=== PATIENT | male | born 1950 | race Caucasian/White ===

== ENCOUNTER 2019-01-26 01:18 | Inpatient (IN) ==
[2019-01-26] MEDS ORDERED: AMIODARONE / D5W 360 MG/200 ML BAG IV STA (04:03)
[2019-01-26] MEDS ORDERED: ICU PROTOCOL FOR HYPERGLYCEMIA PRN (04:03)
[2019-01-26] MEDS ORDERED: ALBUT/IPRATROP 3MG/0.5MG NEB 3 ML VIAL NEB SCH (04:15)
[2019-01-26] MEDS ORDERED: NORMOSOL-R 1,000 ML IV SCH (04:15)
--- NOTE | 2019-01-26 04:28 | Critical Care Consultation ---
Date of Consultation January 26, 2019 Assessment & Plan (1) Ventricular tachycardia: Reason Critically Ill: 68-year-old male presents as transfer from [facility] following ventricular tachycardia requiring cardioversion. Neuro - [facility] ICU: Negative History of brain bleedstatus post craniotomy, only neurological deficit is tremors in hands Cardiac - V. tachpatient received adenosine and then amiodarone at [facility] without conversion, successful synchronized cardioversion at [facility] with 200 J -Patient experienced pauses and transferred from [facility] with associated dizziness, possible pacer malfunction -Status post ablation from July 2018 following ventricular dysrhythmias, patient has AICD malfunction as well -Cardiology consulted, will follow up recs, patient will likely need pacer interrogation -We will maximize electrolytes to keep K greater than 4, mag greater than 2 -No ST elevation on EKG, will trend troponins -will continue amiodarone drip A. fibcontinue Eliquis, beta-lyle CADunderwent CABG in 2000, underwent stent placement 2017 -Currently on daily ASA HTNwe will hold lisinopril for ADY, will resume other home meds Respiratory - COPDcurrently maintaining oxygen saturations on room air, wears 3 L nasal cannula at night while sleeping -Patient is status post left lower lobe lobectomy from July 2018 following diagnosis of small cell carcinoma -Patient had mild wheeze with auscultation on exam -Follow-up CXR -Start nebs -Continuous monitor oxygen saturation GI - N.p.o. at this time RENAL/LYTES - ADY versus CKDno baseline creatinine, no history kidney disease -Hold lisinopril, avoid nephrotoxins -Normosol at 100 mL/h -Monitor creatinine with routine BMPs - Strict I's and O's ENDO - No history diabetes, ICU hyperglycemic protocol Hypothyroidismcontinue Synthroid HEME - H&H stable, monitor routine CBCs ID - No indication for infectious process at this time LINES/IV ACCESS - Peripheral IVs DVT PROPHYLAXIS - SCDs, patient on Eliquis Thank you for allowing us to participate in the care of this patient. Please refer to my attending physician's documentation for any further recommendations. (2) Hypothyroid: (3) Acute kidney injury: (4) Hypertension: (5) COPD (chronic obstructive pulmonary disease): (6) S/P lobectomy of lung: (7) Paced cardiac rhythm: (8) CAD (coronary artery disease): Supervising Physician Co-Signing Physician Notes Patient seen and examined. EMR reviewed. EKGs were reviewed. Discussed with critical care ROSALIO. Patient is a 5-year-old male with an extensive cardiac history who is visiting from [place] for a . His mhdfyl-sy-[id number] recently . He experienced some palpitations and shortness of breath and was seen in the emergency room at [facility]. He had a wide-complex tachycardia. He was treated with adenosine then loaded on amiodarone. He was cardioverted successfully and transported to our facility for higher level of care. Overnight he has been maintained on amiodarone. He reports that he has a dual- chamber pacemaker/AICD in place but cannot recall having had issues with his implantable defibrillator previously. Recommendations: 1. Sustained ventricular tachycardia: Await interrogation of pacemaker AICD. Continue amiodarone for now. He has been maintained in a narrow complex which is paced. Unclear if his pacemaker needs to be readjusted or the settings on his AICD need to be reevaluated. We are pending arrival of the pacemaker human resources representative later today for interrogation. Would continue amiodarone for now. His magnesium was slightly low and will be repleted. Potassium also at lower limits of normal and will be repleted. 2. Palpitations and shortness of breath: Secondary to ventricular arrhythmia. Resolved currently. Continue to follow. 3. Coronary disease: Continue outpatient medications. 4. The patient appears to be stable currently and is appropriate for management on the telemetry floor. Will sign off when he leaves the ICU. Feel free to contact us if we can be of additional assistance History of Present Illness Attending Physician: Aashish Curtis MD History of Present Illness Mr. Rucker is a 68-year-old male with an extensive past medical history significant for CAD as/P CABG (2001), cardiac stent (2017), brain bleed S/P craniotomy, pacemaker, small cell lung cancer S/P left lower lobectomy (08/17), ventricular dysrhythmia S/P ablation (08/17), COPD, HTN, A. fib, hypothyroidism. He was in [place] for a and presented to [facility] with complaints of chest discomfort and shortness of breath. Patient was found to be in sustained monomorphic V. tach. He received adenosine without result, then amiodarone but remained in ventricular tachycardia. He was then cardioverted and converted to paced rhythm. Patient was then transferred to [facility]. On arrival to the ICU the patient is calm and cooperative. He reports intermittent dizziness and EMS reports that the patient has had pauses on the monitor where his pacemaker is not capturing with associated dizzy spells. He currently denies headache, chest pain, palpitations, shortness of breath, abdominal pain, nausea or vomiting, diarrhea. Patient is currently hemodyna mically stable. Cardiology has been consulted in regards to pacemaker malfunction which is [employer]. Patient is currently on amiodarone drip. Will remain in ICU for close monitoring for now Allergies Allergy/AdvReac Type Severity Reaction Status Date / Time morphine AdvReac Headache Verified 01/26/19 04:14 Home Medications Home Medications Medication Instructions Recorded Confirmed Type aclidinium bromide [Tudorza 1 inh INHALATION DAILY 01/26/19 01/26/19 History Pressair] albuterol sulfate 2 puff INHALATION Q4 PRN 01/26/19 01/26/19 History albuterol sulfate 2.5 mg INHALATION Q8H PRN 01/26/19 01/26/19 History alprazolam [Xanax] 0.5 mg PO HS PRN 01/26/19 01/26/19 History apixaban [Eliquis] 5 mg PO BID 01/26/19 01/26/19 History aspirin [Aspir-81] 81 mg PO DAILY 01/26/19 01/26/19 History atorvastatin [Lipitor] 80 mg PO DAILY 01/26/19 01/26/19 History bupropion HCl 300 mg PO DAILY 01/26/19 01/26/19 History carvedilol [Coreg] 25 mg PO BID 01/26/19 01/26/19 History citalopram [Celexa] 20 mg PO DAILY 01/26/19 01/26/19 History clopidogrel [Plavix] 75 mg PO DAILY 01/26/19 01/26/19 History fenofibrate nanocrystallized 145 mg PO DAILY 01/26/19 01/26/19 History fluticasone propion-salmeterol 1 puff INHALATION BID 01/26/19 01/26/19 History [Advair Diskus] lactobacillus combination no.4 3,000 mmu cells PO DAILY 01/26/19 01/26/19 History [Probiotic] levothyroxine [Synthroid] 100 mcg PO DAILY 01/26/19 01/26/19 History lisinopril [Zestril] 40 mg PO DAILY 01/26/19 01/26/19 History omega-3 acid ethyl esters 1 g PO BID 01/26/19 01/26/19 History roflumilast [Daliresp] 500 mcg PO DAILY 01/26/19 01/26/19 History zolpidem [Ambien] 10 mg PO HS PRN 01/26/19 01/26/19 History Patient History Medical History Atrial fibrillation Brain bleed CAD (coronary artery disease) COPD (chronic obstructive pulmonary disease) Hypertension Hypothyroid Lung malignancy Paced cardiac rhythm Ventricular tachycardia Surgical History H/O hernia repair History of craniotomy S/P ablation of ventricular arrhythmia S/P CABG (coronary artery bypass graft) S/P lobectomy of lung Stented coronary artery Social History 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: Georgian Director Public Required: No Beliefs That Will Affect Care: None Current Living Situation: Spouse Other Information That Helps Us Care for You: No Feels Safe at Home: Yes Safety Concerns: Feels Safe At This Time Smoking Status: Former smoker Smoking End Date: 10 years ago ; Second Hand Exposure: No ; Tobacco Cessation Education Requested by Patient: No Hx Alcohol Use: No Hx Substance Use: No Review of Systems Review of Systems: All systems reviewed & are unremarkable except as noted in HPI & below Physical Exam Eyes: PERRL, conjunctivae normal, anicteric sclerae ENMT: external ear and nose normal, oropharynx normal Neck: trachea midline, no thyromegaly Respiratory: no labored breathing and not tachypneic Auscultation: + wheezes Cardiovascular: RRR, no murmur, no edema Heart Sounds: normal S1 and normal S2 Vessels: no JVD Extremities: no edema Gastrointestinal (Abdomen): normal bowel sounds, soft, nontender, no hepatosplenomegaly Skin: no rashes, warm and dry Neurologic: PERRL, EOMI, accommodation nl, no face palsy, no dysarthria Psychiatric: A+Ox3, euthymic affect Coding Level of Care Code 34208 Inpt Consult Level 5 Diagnoses Ventricular tachycardia I47.2 Hypothyroid E03.9 Acute kidney injury N17.9 Hypertension I10 COPD (chronic obstructive pulmonary disease) J44.9 S/P lobectomy of lung Z90.2 Paced cardiac rhythm CAD (coronary artery disease) I25.10
[2019-01-26 04:47] LABS: Basophils # (auto) 0.07 K/uL (0-0.2); Basophils % (auto) 0.8 %; Eosinophils # (auto) 0.19 K/uL (0-0.5); Eosinophils % (auto) 2.2 %; Hematocrit (blood only) 31.1 % (42-52); Hemoglobin 9.7 g/dL (14.0-18.0); Immature Granulocytes # (auto) 0.02 K/uL (0.00-0.02); Immature Granulocytes % (auto) 0.2 %; Lymphocytes # (auto) 2.37 K/uL (1.2-3.4); Lymphocytes % (auto) 27.1 %; Mean Corpuscular Hemoglobin 23.7 pg (25-34); Mean Corpuscular Hgb Conc 31.2 g/dL (32-36); Monocytes # (auto) 0.83 K/uL (0.11-0.59); Monocytes % (auto) 9.5 %; Neutrophils # (auto) 5.26 K/uL (1.4-6.5); Neutrophils % (auto) 60.2 %; Platelet Count 305 K/uL (130-400); RDW Coefficient of Variation 19.2 % (11.5-14.5); RDW Standard Deviation 53.7 fL (36.4-46.3); Red Blood Count 4.09 M/uL (4.7-6.1); White Blood Count 8.74 K/uL (4.8-10.8)
--- NOTE | 2019-01-26 04:48 | History & Physical Report ---
Date of Service January 26, 2019 Assessment & Plan (1) Hypothyroid: (2) Acute kidney injury: (3) Hypertension: (4) COPD (chronic obstructive pulmonary disease): (5) Paced cardiac rhythm: (6) CAD (coronary artery disease): (7) Ventricular tachycardia: 68yoM with hx of CAD, [place] in 1995 with stent placement, 2 vessel CABG in 2000, 2nd stent in 2018, AICD, Afib, HTN, HLD, COPD, lung cancer with LL lobectomy, hx of brain bleed (related to flight) with occasional hand tremors, hypothyroidism presents s/p treatment for Vtach at [facility] on amiodarone drip. Episode of Vtach Vitals stable at this time and pt asymptomatic EKG: AV dual paced rhythm, biventricular pacemaker, 60 Qtc 500 Troponin 0.122 BNP 1402 Received amiodarone load, synchronized cardioversion On Amiodarone drip Replete electrolytes as needed Trend troponin Monitor on telemetry Needs device interrogation Cardiology consulted Hypomagnesemia Mag 1.7 Mag Sulfate 1g ordered Hypophosphatemia Phos 2.2 15mmol potassium phosphate ordered ADY BUN/Cr at OSH 22/1.7 now improved to 19/1.3 On normosol 100cc/hr Anemia Hgb 9.7, microcytic No concern for bleeding at this time Continue to monitor CBC HTN/HLD/CAD/AFib Continue home carvedilol, apixaban, aspirin, atorvastatin Hold home lisinopril in the setting of ADY COPD Continue home advair, albuterol inh, daliresp Duoneb PRN Hypothyroidism Continue home levothyroxine Anxiety/Depression Continue home alprazolam prn, bupropion Insomnia Continue home zolpidem FEN/GI: Normosol 100cc/hr, replete electrolytes as above DVT prop: apixaban Code: Full Disposition: ICU (8) Atrial fibrillation: History of Present Illness Chief Complaint: Vtach Primary Care Provider: NO PCP 68yoM with hx of CAD, [place] in 1996 with stent placement, 2 vessel CABG in 2000, 2nd stent in 2018, AICD, Afib, HTN, HLD, COPD, lung cancer with LL lobectomy, hx of brain bleed (related to flight) with occasional hand tremors, hypothyroidism presents s/p treatment for Vtach at [facility] on amiodarone drip. Pt is from [place] and was in town for [id number] when around 19:00 he experienced palpiations, mild chest discomfort, sob and narrowing of his vision on and off for about 3 hrs. He eventually told his family that he felt bad and was taken to the ED. Episode was associated with diaphoresis. At [facility] ED he was initially treated with adenosine 6 and 12 for concern of SVT which was not helpful then received Amiodarone load and was started on drip for Vtach. He also received synchronized cardioversion. The ED had contacted his railroad yard worker Dr. Moe who had suggested the treatment provided. CBC, CMP, TSH/Free T4 were unremarkable except for Hgb of 11.1, plt ct of 424, BUN/Cr of 22.4/1.74, BNP was 1079 and troponin was 0.035. Of note: pt had AICD placed in 2006 originally which was replaced on September 2016. In July, he was found to have some bedside vtach episodes which were not being picked up by his AICD and he underwent ablation. Since then he has had a few brief episodes of palpitations but none that have lasted this long. He has a [employer] device. Denies any fever, chills, headache, abdominal pain, nausea, vomiting, diarrhea, constipation, hematochezia, melena, hematuria, dysuria at this time SHx: 2 hernia surgeries, CABG, 2 stents, cholecystectomy, left lower lobectomy for lung cancer, hx of brain bleed with craniotomy in 2009 (flight related) resulted in occasional bilateral hand tremors Social Hx: smoked 2ppd for 40 yrs - quit 10 years ago, denies drinking alcohol or recreational drug use Allergies Allergy/AdvReac Type Severity Reaction Status Date / Time morphine AdvReac Headache Verified 01/26/19 04:14 Home Medications Home Medications Medication Instructions Recorded Confirmed Type Daliresp 500 mcg PO DAILY 01/26/19 01/26/19 History Eliquis 5 mg PO BID 01/26/19 01/26/19 History Probiotic 3,000 mmu cells PO DAILY 01/26/19 01/26/19 History Tudorza Pressair 1 inh INHALATION DAILY 01/26/19 01/26/19 History albuterol sulfate 2 puff INHALATION Q4 PRN 01/26/19 01/26/19 History albuterol sulfate 2.5 mg INHALATION Q8H PRN 01/26/19 01/26/19 History alprazolam [Xanax] 0.5 mg PO HS PRN 01/26/19 01/26/19 History aspirin [Aspir-81] 81 mg PO DAILY 01/26/19 01/26/19 History atorvastatin [Lipitor] 80 mg PO DAILY 01/26/19 01/26/19 History bupropion HCl 300 mg PO DAILY 01/26/19 01/26/19 History carvedilol [Coreg] 25 mg PO BID 01/26/19 01/26/19 History citalopram [Celexa] 20 mg PO DAILY 01/26/19 01/26/19 History clopidogrel [Plavix] 75 mg PO DAILY 01/26/19 01/26/19 History fenofibrate nanocrystallized 145 mg PO DAILY 01/26/19 01/26/19 History fluticasone propion-salmeterol 1 puff INHALATION BID 01/26/19 01/26/19 History [Advair Diskus] levothyroxine [Synthroid] 100 mcg PO DAILY 01/26/19 01/26/19 History lisinopril [Zestril] 40 mg PO DAILY 01/26/19 01/26/19 History omega-3 acid ethyl esters 1 g PO BID 01/26/19 01/26/19 History zolpidem [Ambien] 10 mg PO HS PRN 01/26/19 01/26/19 History Past Med/Surg History Medical History Atrial fibrillation Brain bleed CAD (coronary artery disease) COPD (chronic obstructive pulmonary disease) Hypertension Hypothyroid Lung malignancy Paced cardiac rhythm Ventricular tachycardia Surgical History H/O hernia repair History of craniotomy S/P ablation of ventricular arrhythmia S/P CABG (coronary artery bypass graft) S/P lobectomy of lung Stented coronary artery Social History 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: German 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: No Beliefs That Will Affect Care: None Current Living Situation: Spouse Feels Safe at Home: Yes Smoking Status: Former smoker Second Hand Exposure: No ; Hx Alcohol Use: No Hx Substance Use: No Review of Systems Review of Systems: As per HPI Physical Exam Physical Exam: General: In NAD Neuro: A&O x 4 Pulm: Diffuse wheezing appreciated, diminished but equal breath sounds bilaterally CV: RRR, no m/r/g Abdomen:+BS, no TTP in all quadrants, non-distended LE: no LE edema, no calf TTP Results & Data Vital Signs (Past 12 Hours) Vital Signs Temp Pulse Resp BP Pulse Ox 01/26/19 04:13 36.7 C 62 17 128/72 100 Laboratory Results Abnormal lab results 01/26/19 Range/Units 04:30 RBC 4.09 L (4.7-6.1) M/uL Hgb 9.7 L (14.0-18.0) g/dL Hct 31.1 L (42-52) % MCV 76.0 L (80-100) fL MCH 23.7 L (25-34) pg MCHC 31.2 L (32-36) g/dL RDW Std Deviation 53.7 H (36.4-46.3) fL RDW Coeff of Jesus Alberto 19.2 H (11.5-14.5) % Rains # (Auto) 0.83 H (0.11-0.59) K/uL Code Status & VTE Plan Code Status Full VTE Prophylaxis Plan VTE Prophylaxis will be ordered: Yes Critical Care Time Critical Care Time: Yes Total Critical Care Time: 50 Total critical care time was 50 minutes. Supervising Physician Co-Signing Physician Notes Attending addendum: I have physically seen this patient, have supervised the medical residents activities, and agree with the H&P unless as otherwise noted. Assessment and Plan: Sustained ventricular tachycardia status post cardioversion/CAD/hypertension/atrial fibrillation- Patient initially presented to [place] for the emergency department. We recommended cardioversion when his systolic blood pressure has been decreasing from 100 down to 80. Since cardioversion, patient has been paced around 60. Continue amiodarone drip. Admit to the intensive care unit. Order a 2D echocardiogram with Do[facility]. Order laboratories CBC with differential, chemistry profile, serial troponins and magnesium. Consult catering truck driver. Consult cardiology. Contact [employer], manufacture of his present AICD, for interrogation. Of note, patient reports that he had a cardiac ablation performed on August 28 for a rapid heart rate that was not terminated by his AICD. Remainder of orders and notations as noted. Resident Activity Tracking Resident Involvement: Resident Care Provided Care Provided: [facility] Medicine
[2019-01-26 05:08] LABS: INR 1.2 (0.9-1.1); Partial Thromboplastin Ratio 1.1; Partial Thromboplastin Time 30.6 Seconds (21.0-31.0); Prothrombin Time 12.4 Seconds (9.0-12.0)
[2019-01-26 05:14] LABS: BUN Creatinine Ratio 14.5 (10-20); Calcium 8.4 mg/dl (8.5-10.1); Est GFR (African American) 62.3; Est GFR (Non-African American) 53.8; Magnesium 1.7 mg/dl (1.8-2.4); Phosphorus 2.2 mg/dl (2.5-4.9); Potassium 3.7 mmol/L (3.5-5.1); Troponin I 0.122 ng/ml (0-0.045)
[2019-01-26] MEDS ORDERED: POTASSIUM PHOS 3 MMOL/1 ML INFUSION IV STA (05:16)
--- NOTE | 2019-01-26 05:17 | XRay Report ---
XR chest 1V portable CLINICAL HISTORY: 68 years-old Male presenting with SOB. TECHNIQUE: Portable upright AP view of the chest was obtained. COMPARISON: None. FINDINGS: Left subclavian implanted cardiac defibrillator with leads to the right atrium, right ventricular ape x, and coronary sinus. Median sternotomy wires and mediastinal surgical clips noted. Numerous externa l leads and defibrillator pads project over the thorax. Cardiac silhouette mildly enlarged. Mild prom inence of the main pulmonary artery. Obscuration of the left hemidiaphragm. No large pleural effusion or pneumothorax. Posttraumatic deformity of the right clavicle. Upper abdomen normal. IMPRESSION: 1. Extensive left lower lobe atelectasis is suspected. 2. Mild cardiomegaly. No evidence of significant congestive change or pulmonary edema. Electronically signed by: Alcon Cancino M.D. 01/26/2019 5:15 AM
[2019-01-26] MEDS ORDERED: POTASSIUM PHOSPHATE 15 MMOL in SODIUM CHLORIDE 0.9% 250 ML IV ONE (05:30)
[2019-01-26] MEDS: MAGNESIUM SULFATE / D5W 1 GM/100 ML BAG IV SCH ×2 (05:56→08:01)
[2019-01-26] MEDS ORDERED: INFLUENZA ADMINISTRATION CHARGE ONE (08:30)
[2019-01-26] MEDS ORDERED: INFLUENZA VACCINE HIGH DOSE 65+ 0.5 ML SYR IM ONE (08:30)
[2019-01-26] MEDS ORDERED: ACLIDINIUM BROMIDE INH SCH (10:17)
[2019-01-26] MEDS ORDERED: carvediloL 25 MG TAB PO SCH (10:17)
[2019-01-26] MEDS ORDERED: FLUTICASONE/SALMETEROL 100/50 (ADVAIR) 14 PUFF/1 INHALER INH SCH (10:17)
[2019-01-26] MEDS ORDERED: LEVOTHYROXINE SODIUM 100 MCG TABLET PO SCH (10:17)
[2019-01-26] MEDS ORDERED: ATORVASTATIN 40 MG TAB PO SCH (10:17)
[2019-01-26] MEDS ORDERED: ROFLUMILAST 500 MCG TAB PO SCH (10:17)
[2019-01-26] MEDS ORDERED: ALPRAZolam 0.5 MG TABLET PO PRN (10:17)
[2019-01-26] MEDS ORDERED: ASPIRIN 81 MG ECTAB PO SCH (10:17)
[2019-01-26] MEDS ORDERED: BuPROPion XL 300 MG TABCR PO SCH (10:17)
[2019-01-26] MEDS ORDERED: AMIODARONE / D5W 360 MG/200 ML BAG IV SCH (10:30)
--- NOTE | 2019-01-26 11:03 | Cardiology Consultation ---
Date of Consultation January 26, 2019 Assessment & Plan (1) Ventricular tachycardia: He developed sustained ventricular tachycardia with hemodynamic symptoms that lasted for hours, however the rate was well below the rate cut off of the device therefore it was not detected or treated. The arrhythmia log and the device does not note any arrhythmia at that time. He has had no further ventricular tachycardia since cardioversion yesterday. I did reduce the detection rate of the device therefore it should detect and appropriately treat another episode of similar VT. (2) ICD (implantable cardioverter-defibrillator), biventricular, in situ: His ICD appears to be functioning well, I did check his right ventricular pacing threshold as there may been some question about it pacing properly and it was fine, it worked properly and that it did not detect the tachycardia because it was below the rate cut off of the device. I have reprogrammed his rate cut off from 185 bpm which is above the rate of the ventricular tachycardia down to 150 bpm. He does not have high heart rates and therefore this should not conflict with his sinus rhythm. (3) CAD (coronary artery disease): He has coronary disease and his troponin is slightly elevated, it is not surprising considering he had at least several hours of ventricular tachycardia and I would expect some element of demand ischemia. It may be prudent to wait until his enzymes trend downward, which could be later today. (4) Atrial fibrillation: He does have atrial fibrillation, he was not in atrial fibrillation currently but the device has detected some. I did not alter his therapy for this. Supervising Physician Co-Signing Physician Notes Patient seen and examined. EMR reviewed. EKGs were reviewed. Discussed with critical care ROSALIO. Patient is a 5-year-old male with an extensive cardiac history who is visiting from [place] for a . His [id number] recently . He experienced some palpitations and shortness of breath and was seen in the emergency room at [facility]. He had a wide-complex tachycardia. He was treated with adenosine then loaded on amiodarone. He was cardioverted successfully and transported to our facility for higher level of care. Overnight he has been maintained on amiodarone. He reports that he has a dual- chamber pacemaker/AICD in place but cannot recall having had issues with his implantable defibrillator previously. Recommendations: 1. Sustained ventricular tachycardia: Await interrogation of pacemaker AICD. Continue amiodarone for now. He has been maintained in a narrow complex which is paced. Unclear if his pacemaker needs to be readjusted or the settings on his AICD need to be reevaluated. We are pending arrival of the pacemaker technical sales representative later today for interrogation. Would continue amiodarone for now. His magnesium was slightly low and will be repleted. Potassium also at lower limits of normal and will be repleted. 2. Palpitations and shortness of breath: Secondary to ventricular arrhythmia. Resolved currently. Continue to follow. 3. Coronary disease: Continue outpatient medications. 4. The patient appears to be stable currently and is appropriate for management on the telemetry floor. Will sign off when he leaves the ICU. Feel free to contact us if we can be of additional assistance History of Present Illness Reason for Consultation: Ventricular tachycardia, ICD Attending Physician: Benjamin Campos, DO History of Present Illness This is a 68-year-old male who has a history of myocardial infarction reportedly in 1995 as well as subsequent bypass surgery and stent placement in 2018. He also has COPD, hypertension and hyperlipidemia. He also has a history of atrial fibrillation. He has an ICD in place, I believe that was initially placed in 2006 and then replaced September 2016. His current device is a [employer] biventricular ICD. His records indicate that in July 2018 he had ventricular tachycardia which was not being picked up by his device and he had an ablation performed. This is per his chart, I do not have records. More recently he has been having occasional episodes of palpitations but he tells me his device has never gone off. By that I assume he means he has never received an ICD shock that he is aware of. He was visiting in this area for a when he developed palpitations and around 1900 on January 25, 2019, he had some mild chest discomfort and what sounds like hemodynamic symptoms and these symptoms lasted for about 3 hours and ultimately he was taken to [facility] emergency room where he was initially treated with adenosine with no response, received intravenous amiodarone and ultimately was cardioverted. A twelve-lead electrocardiogram shows ventricular tachycardia at about 170 bpm. He was transferred here, he remains on an amiodarone drip. He is not having chest discomfort at the time of my evaluation and tells me that he has not had chest discomfort since his cardioversion. On questioning him about cardiac symptoms prior to this event he has been feeling well, he does have dyspnea on exertion but he has COPD and he feels that those symptoms have not changed. He has not been having chest discomfort with exertion prior to this event and has had none since. Of note his troponin is slightly elevated, although that is not surprising. Allergies Allergy/AdvReac Type Severity Reaction Status Date / Time morphine AdvReac Headache Verified 01/26/19 04:14 Home Medications Home Medications Medication Instructions Recorded Confirmed Type aclidinium bromide [Tudorza 1 inh INHALATION DAILY 01/26/19 01/26/19 History Pressair] albuterol sulfate 2 puff INHALATION Q4 PRN 01/26/19 01/26/19 History albuterol sulfate 2.5 mg INHALATION Q8H PRN 01/26/19 01/26/19 History alprazolam [Xanax] 0.5 mg PO HS PRN 01/26/19 01/26/19 History apixaban [Eliquis] 5 mg PO BID 01/26/19 01/26/19 History aspirin [Aspir-81] 81 mg PO DAILY 01/26/19 01/26/19 History atorvastatin [Lipitor] 80 mg PO DAILY 01/26/19 01/26/19 History bupropion HCl 300 mg PO DAILY 01/26/19 01/26/19 History carvedilol [Coreg] 25 mg PO BID 01/26/19 01/26/19 History citalopram [Celexa] 20 mg PO DAILY 01/26/19 01/26/19 History clopidogrel [Plavix] 75 mg PO DAILY 01/26/19 01/26/19 History fenofibrate nanocrystallized 145 mg PO DAILY 01/26/19 01/26/19 History fluticasone propion-salmeterol 1 puff INHALATION BID 01/26/19 01/26/19 History [Advair Diskus] lactobacillus combination no.4 3,000 mmu cells PO DAILY 01/26/19 01/26/19 History [Probiotic] levothyroxine [Synthroid] 100 mcg PO DAILY 01/26/19 01/26/19 History lisinopril [Zestril] 40 mg PO DAILY 01/26/19 01/26/19 History omega-3 acid ethyl esters 1 g PO BID 01/26/19 01/26/19 History roflumilast [Daliresp] 500 mcg PO DAILY 01/26/19 01/26/19 History zolpidem [Ambien] 10 mg PO HS PRN 01/26/19 01/26/19 History Patient History Medical History Atrial fibrillation Brain bleed CAD (coronary artery disease) COPD (chronic obstructive pulmonary disease) Hypertension Hypothyroid Lung malignancy Paced cardiac rhythm Ventricular tachycardia Surgical History H/O hernia repair History of craniotomy S/P ablation of ventricular arrhythmia S/P CABG (coronary artery bypass graft) S/P lobectomy of lung Stented coronary artery Social History 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: Welsh Director Of Labor And Delivery Required: No Beliefs That Will Affect Care: None Current Living Situation: Spouse Other Information That Helps Us Care for You: No Feels Safe at Home: Yes Safety Concerns: Feels Safe At This Time Smoking Status: Former smoker Smoking End Date: 10 years ago ; Second Hand Exposure: No ; Tobacco Cessation Education Requested by Patient: No Hx Alcohol Use: No Hx Substance Use: No Review of Systems Review of Systems: All systems reviewed & are unremarkable except as noted in HPI & below Physical Exam Physical Exam: Constitutional: Alert, cooperative and in no distress. HEENT: Unremarkable Neck: No jugular venous distention, carotid pulses are normal and equal bilaterally without bruits. Pulmonary: Clear to auscultation bilaterally. Cardiac: Regular rhythm with no murmur, gallop or rub. Abdomen: Soft, nontender with normal bowel sounds. Extremities: No edema. Distal pulses intact. Neurologic: No focal findings. Gait is steady. Skin: No rash, ecchymoses or petechiae. Results & Data Vital Signs (Past 12 Hours) Vital Signs Temp Pulse Pulse Resp BP BP Pulse Ox 01/26/19 10:01 60 14 99 01/26/19 10:00 60 14 132/70 98 01/26/19 09:00 60 19 119/71 97 01/26/19 08:01 36.7 C 60 16 99 01/26/19 08:00 60 13 124/68 99 01/26/19 07:01 60 97 01/26/19 07:00 60 99/50 L 96 01/26/19 06:00 60 27 H 120/67 99 01/26/19 05:30 60 16 98 01/26/19 05:01 60 14 99 01/26/19 05:00 60 17 130/67 99 01/26/19 04:30 60 18 99 01/26/19 04:13 36.7 C 62 17 128/72 100 01/26/19 04:01 62 20 97 01/26/19 04:00 63 19 140/80 100 01/26/19 03:34 64 18 128/72 99 Laboratory Results Abnormal lab results 01/26/19 01/26/19 01/26/19 Range/Units 04:30 04:30 04:30 RBC 4.09 L (4.7-6.1) M/uL Hgb 9.7 L (14.0-18.0) g/dL Hct 31.1 L (42-52) % MCV 76.0 L (80-100) fL MCH 23.7 L (25-34) pg MCHC 31.2 L (32-36) g/dL RDW Std Deviation 53.7 H (36.4-46.3) fL RDW Coeff of Jesus Alberto 19.2 H (11.5-14.5) % Dundy # (Auto) 0.83 H (0.11-0.59) K/uL PT 12.4 H (9.0-12.0) Seconds INR 1.2 H (0.9-1.1) Chloride 114 H (98-107) mmol/L BUN 19 H (7-18) mg/dl Glucose 109 H (70-99) mg/dl Calcium 8.4 L (8.5-10.1) mg/dl Phosphorus 2.2 L (2.5-4.9) mg/dl Magnesium 1.7 L (1.8-2.4) mg/dl Troponin I 0.122 H* (0-0.045) ng/ml NT-Pro-B Natriuret Pep 1402 H (0-900) pg/ml 01/26/19 Range/Units 09:57 RBC (4.7-6.1) M/uL Hgb (14.0-18.0) g/dL Hct (42-52) % MCV (80-100) fL MCH (25-34) pg MCHC (32-36) g/dL RDW Std Deviation (36.4-46.3) fL RDW Coeff of Jesus Alberto (11.5-14.5) % Dundy # (Auto) (0.11-0.59) K/uL PT (9.0-12.0) Seconds INR (0.9-1.1) Chloride (98-107) mmol/L BUN (7-18) mg/dl Glucose (70-99) mg/dl Calcium (8.5-10.1) mg/dl Phosphorus (2.5-4.9) mg/dl Magnesium (1.8-2.4) mg/dl Troponin I 0.243 H* (0-0.045) ng/ml NT-Pro-B Natriuret Pep (0-900) pg/ml Diagnostic Findings Telemetry monitoring: Since transfer here sinus rhythm with appropriate atrial sensing and ventricular pacing PG Care Time/CCT Total # of Minutes Spent Total Time Spent with Patient: Total time spent is greater than 50% in coordination of care (as documented) at patient's floor/unit and/or counseling patient:
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
[2019-01-27] MEDS ORDERED: LACTOBACILLUS ACIDOPHILUS (FLORANEX) TAB PO SCH (09:00)
--- NOTE | 2019-01-27 19:58 | Billing Data ---
Coding Level of Care Code Critical Care 1st 30-74 mins
== END 2019-01-26 15:03 | disposition home or self-care (01) | DRG 309 ==
LOC: 1E 03:45 → SUATTDRO 03:45 → OBSVTOIN 03:45 → INTOOBSV 03:45